=== PATIENT | female | born 1990 | race Two or more races ===

== ENCOUNTER 2018-06-25 15:09 | Emergency (ER) | payer OTHER ==
[~2018-06-25] VITALS: Ht 167.6 cm; Wt 99.3 kg
== END 2018-06-25 19:36 | disposition home or self-care (01) ==
LOC: ER 15:09
DX: J11.1 Influenza due to unidentified influenza virus with other respiratory manifestations (principal)

== ENCOUNTER 2018-11-01 19:22 | Outpatient (CLI) | payer OTHER | END 2018-11-02 15:49 | disposition home or self-care (01) | LOC: OBS/DEL 19:22 | DX: O35.8XX0 Maternal care for other (suspected) fetal abnormality and damage, not applicable or unspecified (principal); Z34.83 Encounter for supervision of other normal pregnancy, third trimester ==

== ENCOUNTER 2018-11-02 13:55 | Inpatient (IN) | payer OTHER ==
[~2018-11-02] VITALS: Ht 167.6 cm; Wt 105.2 kg
[2018-11-04] MEDS ORDERED: ZANTAC150 M3 PO (14:46)
[2018-11-04] MEDS ORDERED: PRENATAL 19 TA1 EACH PO (14:46)
== END 2018-11-11 14:09 | disposition home or self-care (01) | DRG 785 ==
LOC: OB/GYN 11-04 13:30 → O/R 11-08 09:00 → SURG-SUITE 11-08 09:00 → OB/GYN 11-08 13:30 → SURG-SUITE 11-08 17:32
PROVIDERS: ADMIT Obstetrics & Gynecology
PROC: 0UL70ZZ Occlusion of Bilateral Fallopian Tubes, Open Approach (ICD-10-PCS; 2018-11-08)
PROC: 4A1HXCZ Monitoring of Products of Conception, Cardiac Rate, External Approach (ICD-10-PCS; 2018-11-08)
PROC: 10D00Z1 Extraction of Products of Conception, Low, Open Approach (ICD-10-PCS; principal; 2018-11-08 14:30)
DX: O82 Encounter for cesarean delivery without indication (principal); Z3A.39 39 weeks gestation of pregnancy; Z37.0 Single live birth; Z30.2 Encounter for sterilization